=== PATIENT | male | born 1950 | race Caucasian/White ===

== ENCOUNTER → 2020-12-02 | Outpatient (CLI) | payer MEDICARE ==
[~2020-12-02] MED LIST: ASPIRIN 81M81 MG/TA2 PO; CENTRUM SILVER1 TAB PO; GLUCOPHAGE1000 MG PO; LOTREL 10 MG-201 CAP PO; OMEGA-3 FISH1200 MG PO; PRAVACHOL 40MG40 MG PO; VITAMIN C500 MG PO
== END ==
LOC: COL.RAD 11:07
DX: R22.41 Localized swelling, mass and lump, right lower limb (principal)

== ENCOUNTER → 2021-06-17 | Outpatient (CLI) | payer MEDICARE | LOC: COL.RAD 09:26 | DX: R91.8 Other nonspecific abnormal finding of lung field (principal); K80.20 Calculus of gallbladder without cholecystitis without obstruction | CPT/HCPCS: Q9967 ==

== ENCOUNTER 2021-07-16 06:30 | Outpatient (CLI) | payer MEDICARE ==
--- NOTE | 2021-07-12 13:42 | NUR ---
LMOM WITH INSTRUCTION AND CALL BACK NUMBER
[2021-07-16] VITALS (24 sets, daily range): BP systolic 105–141; BP diastolic 61–94; PULSE 49–96; TEMP 98.2
[~2021-07-16] VITALS: Ht 172.7 cm; Wt 82.4 kg
[~2021-07-16 06:30] MED LIST changes: +ASPIRIN 32325 MG/TAB PO; +CHANTIX 1MG1 MG PO; +CIALIS5 MG PO; +DIOVAN HCT 25 M1 TA1 PO; +LUTEIN20 M1 PO; +THE MEDICINE S200 M2 PO; +WELLBUTRIN SR150 M1 PO
== END 2021-07-16 12:56 ==
LOC: COL.RAD 06:30
DX: R91.1 Solitary pulmonary nodule (principal); Z98.890 Other specified postprocedural states
CPT/HCPCS: J3010

== ENCOUNTER → 2022-10-19 | Outpatient (CLI) | payer MEDICARE | LOC: COL.RAD 09:36 | DX: R91.8 Other nonspecific abnormal finding of lung field (principal) | CPT/HCPCS: Q9967 ==

== ENCOUNTER → 2023-06-05 | Outpatient (CLI) | payer MEDICARE ==
[~2023-06-05] MED LIST changes: +Iohexol 300 - 100 ML VIAL IV ONE; +NS 100 ML IV SCH
== END ==
LOC: COL.RAD 08:47
DX: R91.8 Other nonspecific abnormal finding of lung field (principal)
CPT/HCPCS: Q9967